=== PATIENT | female | born 1965 ===

== ENCOUNTER 2018-02-03 16:29 | Emergency (ER) | payer OTHER, SELFPAY ==
--- NOTE | 2018-02-03 18:44 | ED PDOC ---
Upper Extremity Pain/Injury Time Seen by Provider: 02/03/18 17:43 Chief Complaint (Nursing): Upper Extremity Problem/Injury Chief Complaint (Provider): Right shoulder pain History Per: Patient History/Exam Limitations: no limitations Onset/Duration Of Symptoms: Other (>1 year) Additional Complaint(s): 52 year old female presents to the ED for evaluation of chronic right shoulder pain. Patient states she was evaluated last year for the same complaint and had an MRI done at the time confirming a "muscle tear" which would require surgical repair. She states she scheduled to have surgery this past May, however, she missed her pre-op appointment and never followed up again. Patient presents to the ED secondary to this shoulder pain (unchanged from the past) and took no medications prior to arrival. Denies new injury, falls, or trauma. She indicates pain worsens with movement. Patient does a lot of heavy lifting at work, packing boxes which she states is contributing to her symptoms. Patient has no other complaints. LMP June 2017-Patient is perimenopausal. PMD: none Past Medical History Reviewed: Historical Data, Nursing Documentation, Vital Signs Vital Signs: Last Vital Signs Temp 98.9 F 02/03/18 16:53 Pulse 90 02/03/18 16:53 Resp 19 02/03/18 16:53 BP 131/62 02/03/18 16:53 Pulse Ox 98 02/03/18 16:53 - Medical History PMH: No Chronic Diseases - Surgical History Surgical History: - Family History Family History: States: Unknown Family Hx - Home Medications Home Medications: Ambulatory Orders Medication Instructions Recorded Acetaminophen/Oxycodone Hydr 1 tab PO Q6H #15 tab 07/28/13 [Percocet 10/325 mg Tab] Motrin PO PRN 07/28/13 Cyclobenzaprine [Cyclobenzaprine 10 mg PO BID #14 tab 04/27/16 HCl] Ibuprofen [Motrin] 400 mg PO Q6 #30 tab 04/27/16 Acetaminophen [Acetaminophen 8 650 mg PO Q8 PRN #21 tablet.er 02/03/18 Hour] Meloxicam [Mobic] 15 mg PO DAILY #10 tab 02/03/18 - Allergies Allergies/Adverse Reactions: Allergies Allergy/AdvReac Type Severity Reaction Status Date / Time No Known Allergies Allergy Verified 04/27/16 19:24 Review of Systems ROS Statement: Except As Marked, All Systems Reviewed And Found Negative Musculoskeletal: Positive for: Other (Right shoulder pain) Physical Exam - Reviewed Nursing Documentation Reviewed: Yes Vital Signs Reviewed: Yes - Physical Exam Comments: GENERAL APPEARANCE: Patient is awake, alert, oriented x 3, in no acute distress. Resting comfortably. SKIN: Warm, dry; (-) cyanosis. CHEST AND RESPIRATORY: (-) rales, (-) rhonchi, (-) wheezes; breath sounds equal bilaterally. Respirations even and nonlabored. HEART AND CARDIOVASCULAR: (-) irregularity RIGHT SHOULDER: Decreased ROM secondary to pain, (+) diffuse tenderness, (-) palpable deformity, (-) effusion, (-) erythema, (-) warmth. Sensation and capillary refill intact. Dock Clerk strength is equal. Remainder of upper extremity non-tender with FROM. (+) pulses NEURO AND PSYCH: Mental status as above. Gait: steady. Speech: clear. (-) facial asymmetry (-) focal deficit. - Laboratory Results Urine POC: Negative - ECG O2 Sat by Pulse Oximetry: 98 (RA) Pulse Ox Interpretation: Normal Medical Decision Making Medical Decision Making: Initial Impression: Chronic shoulder pain Initial Plan: --ED urine --Flexeril 10mg PO (Not driving home) --Toradol 30mg IM Upreg: negative 2014 On re-evaluation, patient reports improvement of symptoms. On exam, patient remains AAOx3, in no acute distress. Lungs clear to auscultation, cardiac RRR, repeat neuro exam shows no focal findings. Vitals stable. Lab/Diagnostic results d/w the patient in great detail. Diagnosis of shoulder pain d/w the patient. Based on history, exam and diagnostic results, plan will be for outpatient follow up with clinic/ortho. Patient instructed to follow-up with pmd / referral provided / the clinic in 1- 2 days without fail. Advised to take medication as prescribed. Return to the emergency room at any time for any new or worsening symptoms. Patient states she fully agrees with and understands discharge instructions. States that she agrees with the plan and disposition. Verbalized and repeated discharge instructions and plan. I have given the patient opportunity to ask any additional questions. Scribe Attestation: Documented by Mitch Llanos acting as a scribe for Gaviota PACHECO Provider Scribe Attestation: All medical record entries made by the Scribe were at my direction and personally dictated by me. I have reviewed the chart and agree that the record accurately reflects my personal performance of the history, physical exam, medical decision making, and the department course for this patient. I have also personally directed, reviewed, and agree with the discharge instructions and disposition. Disposition - Clinical Impression Clinical Impression: Chronic shoulder pain - Patient ED Disposition Is Patient to be Admitted: No Counseled Patient/Family Regarding: Studies Performed, Diagnosis, Need For Followup, Rx Given - Disposition Referrals: Suraj Bragg III, MD [Staff Provider] - [facility] [Outside] Disposition: Routine/Home Disposition Time: 20:15 Condition: STABLE Additional Instructions: La atencin mdica de emergencia que recibi hoy se dirigi a cruzito sntomas agudos. Si le recetaron algn medicamento, llnelo y tmelo segn las indica ciones. Los sntomas pueden tardar varios ortiz en resolverse. Regrese al Departamento de Emergencias si cruzito sntomas empeoran, no mejoran o si tiene otros problemas. Comunquese con lopez mdico dentro de 2 ortiz para linsey nueva evaluacin y vincent un seguimiento o llame a dimitris de los mdicos / clnicas a los que ashley sido referido y que figuran en el formulario de Informacin de visita al paciente que se incluye en lopez paquete de alicia. Lleve con usted a lopez consulta de seguimiento toda la documentacin que recibi del alicia junto con los medicamentos que est tomando. Nuestro tratamiento no puede reemplazar la atencin mdica continua por parte de un proveedor de atencin primaria (PCP) fuera del departamento de emergencias. Prescriptions: Acetaminophen [Acetaminophen 8 Hour] 650 mg PO Q8 PRN #21 tablet.er PRN Reason: Pain, Moderate (4-7) Meloxicam [Mobic] 15 mg PO DAILY #10 tab Instructions: Shoulder Sprain (DC), Shoulder Pain (DC) Forms: [employer] (Azeri) Print Language: CENTRAL AFRICAN - POCesar Present On Arrival: None
[2018-02-03 20:30] VITALS: BP 129/86; PULSE 72; RESP 16; TEMP 98.1
[2018-02-04 13:43] VITALS: O2SAT 98
== END 2018-02-03 20:30 | disposition home or self-care (01) ==
LOC: H.ER 16:29
DX: G89.29 Other chronic pain (principal)
CPT/HCPCS: 81025; 96372; 99283; J1885